=== PATIENT | male | born 1940 | race Caucasian/White ===

== ENCOUNTER 2020-01-15 07:33 | Emergency (ER) | payer MEDICARE, OTHER, SELFPAY ==
[2020-01-15 07:38] VITALS: BP 142/69; PULSE 53; RESP 20; TEMP 35.8; O2SAT 96
--- NOTE | 2020-01-15 07:43 | ED_ITS ---
HPI - Dizziness General Chief Complaint: Dizziness Stated Complaint: Dizzy Time Seen by Provider: 01/15/20 07:41 Source: patient Mode of arrival: EMS Limitations: no limitations History of Present Illness HPI Narrative: Patient is a 79-year-old male who presents with sudden onset of dizziness. He says he woke up around 6:00 a.m. this morning he was having a mild low back pain which is not uncommon for him he stood up his back pain was relieved he had some breakfast he sat back down in his chair and fell asleep when he woke up again he was severely nauseated and dizzy and felt like he might pass out. He was diaphoretic as well. He denies any chest pain weakness numbness or tingling. His back pain has since resolved he did not even need to take any medication for it. He has no abdominal pain. He overall is feeling better. He denies the room spinning. He states that he generally feels weak all over MD complaint: dizziness and lightheadedness Timing: sudden onset History of similar episodes: No History of trauma: No Exacerbating factors: nothing Associated symptoms: diaphoresis and weakness Review of Systems Review of Systems Narrative: GENERAL: Weakness Denies chills, fatigue, malaise, fever, sweats, travel HEENT: Denies sinus pain, ear pain, sore throat, difficulty swallowing, neck pain RESPIRATORY: Denies dyspnea, cough, wheezing, hemoptysis, sputum. CARDIOVASCULAR: Denies chest pain, palpitations, orthopnea, edema GASTROINTESTINAL: Denies nausea, vomiting, abdominal pain, diarrhea, constipation, melena. : Denies dysuria, frequency, incontinence, hematuria, urinary retention, flank pain. MUSCULOSKELETAL: Denies weakness, joint pain, or bony pain SKIN: No rash, no erythema, no pruritus NEUROLOGIC: Denies weakness, headache, numbness, change in speech, confusion PSYCHIATRIC: No concerning psychosocial issues. 12 point review of systems is negative except for those stated above and HPI Patient History Medical History Hypertension (Acute) Social History Smoking Status: Never smoker Exam Initial Vital Signs Initial Vital Signs: Vital Signs Temperature 96.5 F L 01/15/20 07:38 Pulse Rate 53 L 01/15/20 07:38 Respiratory Rate 20 01/15/20 07:38 Blood Pressure 142/69 H 01/15/20 07:38 Pulse Oximetry 96 01/15/20 07:38 GENERAL: The male appears well HEENT: Head atraumatic,EOMI, pupils reactive, face symmetric CARDIOVASCULAR: Regular rate and rhythm without murmurs, rubs or gallops. RESPIRATORY: Breath sounds equal bilaterally, no wheezes rales or rhonchi. ABDOMEN: Soft, nontender. Normoactive bowel sounds all 4 quadrants. No guarding or rebound. EXTREMITIES: Normal range of motion, no clubbing or edema. Neurovascularly intact NEUROLOGICAL: Alert and oriented x4.Normal gait and speech. Cranial nerves II through XII grossly intact. Good brpyyp-fk-cced, good zkzq-ga-lyay, strength equal bilaterally, no dysarthria or aphasia, sensation in tact to soft touch bilaterally, no visual changes, no facial droop SKIN: Warm, dry, no laceration, no petechiae, no rashes or lesions. Scores NIH Stroke Scale Level of Conciousness: Alert, keenly responsive Ask month/age: Answers both questions correctly. Open/close eyes, close hand: Performs both tasks correctly Best gaze horizontal: Normal Visual stokes: No visual loss Facial palsy: Normal symetrical movement Left arm drift: No drift for full 10 sec Right arm drift: No drift for full 10 sec Left leg drift: No drift for full 10 sec Right leg drift: No drift for full 10 sec Limb ataxia: Absent Sensory on face/arms/legs: Normal, no sensory loss Best language: No aphasia, normal Dysarthria: Normal Extinction or inattention: No abnormality Total NIH Stroke scale score: 0 Course Orders Ordered: Discontinued Medications Sodium Chloride (Normal Saline 0.9%) 1,000 mls @ 150 mls/hr IV CONT FABRICIO Last Admin: 01/15/20 07:48 Dose: 150 mls/hr Documented by: ZAHRA Vital Signs Vital signs: Vital Signs - 8 hr 01/15/20 07:38 01/15/20 08:41 Temperature 96.5 F L Pulse Rate 53 L 50 L Respiratory Rate 20 15 Blood Pressure 142/69 H Blood Pressure [Left Arm] 158/71 H Pulse Oximetry 96 96 MDM - Dizziness Lab Data Attestation: I reviewed the patient's lab results. Result diagrams: 01/15/20 07:46 01/15/20 07:46 Labs: Lab Results 01/15/20 01/15/20 Range/Units 07:46 07:46 WBC 7.0 (4.5-11.0) X10^3/uL RBC 4.20 L (4.5-5.9) X10^6/uL Hgb 13.6 (13.5-17.5) g/dL Hct 38.8 L (41-53) % MCV 92.2 (80-100) fL MCH 32.2 (26-34) PG MCHC 35.0 (30-36) % RDW 12.3 (11.6-14.8) % Plt Count 234 (150-400) X10^3/uL Neut % (Auto) 74.4 (50-75) % Lymph % (Auto) 14.9 L (25-40) % [place] % (Auto) 8.7 (3-14) % Eos % (Auto) 1.5 L (2-4) % Baso % (Auto) 0.5 (0-2) % Neut # (Auto) 5200 (9020-7267) /uL Lymph # (Auto) 1000 L (7596-5108) /uL [place] # (Auto) 600 (0-900) /uL Eos # (Auto) 100 (0-450) /uL Baso # (Auto) 0 (0-100) /uL Sodium 133 L (137-145) mmol/L Potassium 3.2 L (3.4-5.1) mmol/L Chloride 97 L (98-107) mmol/L Carbon Dioxide 29 (22-32) mmol/L BUN 13 (9-20) mg/dL Creatinine 0.77 (0.66-1.25) mg/dL Estimated GFR > 60.0 (>60) mL/min BUN/Creatinine Ratio 16.9 (6-22) Glucose 206 H (80-110) mg/dL Calcium 9.1 (8.4-10.2) mg/dL Total Bilirubin 0.6 (0.2-1.3) mg/dL AST 27 (17-59) IU/L ALT 20 (<50) IU/L Alkaline Phosphatase 66 (38-126) U/L Total Creatine Kinase 37 L (55-170) U/L CK-MB (CK-2) TNP CK-MB (CK-2) Rel Index TNP Troponin I < 0.012 (0.01-0.034) ng/mL Total Protein 6.6 (6.3-8.2) g/dL Albumin 4.0 (3.5-5.0) g/dL Globulin 2.6 (1.7-4.1) g/dL Albumin/Globulin Ratio 1.5 (1.0-2.8) ECG Data Attestation: I personally reviewed and interpreted this ECG as follows: Prior ECG tracings: not available for review Interpretation: Normal sinus rhythm rate 52 p.r. interval 228 QRS [address] elevation depression MDM Narrative Medical decision making narrative: Patient tolerating p.o. fluids he had ambulation trial he overall is feeling significantly better. He has no focal d eficits. Unclear cause of nausea and dizziness which has now resolved. No focal deficits dizziness was brief and seems to be feeling much better. At this time no clear indication for imaging. I did discuss with patient if symptoms worsen he needs to return for further test I discussed all findings with the patient , Education has been performed regarding treatment plan, diagnosis, warning signs and symptoms and all concerns have been addressed. Verbally agree with and understood all of the above. Discharge Plan Departure Patient Disposition: Home Clinical Impression: Benign paroxysmal positional vertigo Qualifiers: Laterality: unspecified laterality Qualified Code(s): H81.10 - Benign paroxysmal vertigo, unspecified ear Discharge Date/Time: 01/15/20 09:28 Instructions: DI for Dizziness-Nonvertigo Activity Restrictions/Additional Instructions: *You have been diagnosed with vertigo *What to do: It is unclear what caused her symptoms today. It if they should return or worsen please return to the ER immediately. *Continue to take medications as directed *Follow up with your primary care provider in 2-3 days *Return to ER if you should have recurrent episode of dizziness, passing out persistent nausea or vomiting weakness or numbness in extremities difficulty speaking frequent fall or any new, worsening or concerning symptoms
[2020-01-15] MEDS: SODIUM CHLORIDE 0.9% 1,000 ML 150 ML IV (07:48)
[2020-01-15 08:02] LABS: Add Manual Diff / Slide Review NO; Basophils Absolute Auto 0 /uL (0-100); Basophils Percent Auto 0.5 % (0-2); Eosinophils Absolute Auto 100 /uL (0-450); Eosinophils Percent Auto 1.5 % (2-4); Hematocrit 38.8 % (41-53); Hemoglobin 13.6 g/dL (13.5-17.5); Lymphocytes Absolute Auto 1000 /uL (1100-4500); Lymphocytes Percent Auto 14.9 % (25-40); Mean Corpuscular Hemoglobin 32.2 PG (26-34); Mean Corpuscular Volume 92.2 fL (80-100); Monocytes Absolute Auto 600 /uL (0-900); Monocytes Percent Auto 8.7 % (3-14); Neutrophils Absolute Auto 5200 /uL (1500-7000); Neutrophils Percent Auto 74.4 % (50-75); Platelet Count 234 X10^3/uL (150-400); Red Cell Distribution Width 12.3 % (11.6-14.8)
[2020-01-15 08:22] LABS: Alanine Aminotransferase 20 IU/L (<50); Albumin Globulin Ratio 1.5 (1.0-2.8); Alkaline Phosphatase 66 U/L (38-126); Aspartate Aminotransferase 27 IU/L (17-59); BUN Creatinine Ratio 16.9 (6-22); Bilirubin Total 0.6 mg/dL (0.2-1.3); Blood Urea Nitrogen 13 mg/dL (9-20); Calcium 9.1 mg/dL (8.4-10.2); Carbon Dioxide 29 mmol/L (22-32); Chloride 97 mmol/L (98-107); Creatine Kinase 37 U/L (55-170); Estimated Glomerular Filt Rate > 60.0 mL/min (>60); Globulin 2.6 g/dL (1.7-4.1); Glucose 206 mg/dL (80-110); HEMOLYSIS < 15 (0-50); Potassium 3.2 mmol/L (3.4-5.1); Sodium 133 mmol/L (137-145); Total Protein 6.6 g/dL (6.3-8.2)
[2020-01-15 08:33] LABS: Troponin I < 0.012 ng/mL (0.01-0.034)
[2020-01-15 08:41] VITALS: BP 158/71; PULSE 50; RESP 15; O2SAT 96
--- NOTE | 2020-01-29 11:49 | PC.NURSE ---
Late entry: Normal Saline started @ 0748 @ 150 ml / hour stopped at 0920 upon pt discharge. Approx 225 cc infused. No ill effect.
== END 2020-01-15 09:28 | disposition home or self-care (01) ==
PROVIDERS: Emergency Provider Emergency Medicine
DX: H81.10 Benign paroxysmal vertigo, unspecified ear (principal)
CPT/HCPCS: 36415; 80053; 82550; 84484; 85025; 93005; 96360; 96361; 99283; 99284

== ENCOUNTER → 2020-06-03 17:00 | Outpatient (CLI) | payer MEDICARE, OTHER, SELFPAY ==
[2020-06-03 17:32] LABS: Bacteria Urine None Seen
[2020-06-03 17:57] LABS: Alanine Aminotransferase 25 IU/L (<50); Albumin 4.1 g/dL (3.5-5.0); Albumin Globulin Ratio 1.4 (1.0-2.8); Alkaline Phosphatase 66 U/L (38-126); Aspartate Aminotransferase 31 IU/L (17-59); BUN Creatinine Ratio 23.1 (6-22); Bilirubin Total 0.5 mg/dL (0.2-1.3); Blood Urea Nitrogen 21 mg/dL (9-20); Calcium 8.9 mg/dL (8.4-10.2); Carbon Dioxide 31 mmol/L (22-32); Chloride 102 mmol/L (98-107); Estimated Glomerular Filt Rate > 60.0 mL/min (>60); Glucose 103 mg/dL (80-110); HEMOLYSIS < 15 (0-50); Potassium 4.3 mmol/L (3.4-5.1); Sodium 136 mmol/L (137-145); Total Protein 7.1 g/dL (6.3-8.2)
[2020-06-03 18:01] LABS: Add Manual Diff / Slide Review NO; Basophils Absolute Auto 100 /uL (0-100); Basophils Percent Auto 0.9 % (0-2); Eosinophils Absolute Auto 100 /uL (0-450); Eosinophils Percent Auto 1.5 % (2-4); Hematocrit 40.2 % (41-53); Hemoglobin 13.8 g/dL (13.5-17.5); Lymphocytes Absolute Auto 1400 /uL (1100-4500); Lymphocytes Percent Auto 23.9 % (25-40); Mean Corpuscular HGB Conc 34.2 % (30-36); Mean Corpuscular Hemoglobin 32.2 PG (26-34); Monocytes Absolute Auto 600 /uL (0-900); Monocytes Percent Auto 9.8 % (3-14); Neutrophils Absolute Auto 3800 /uL (1500-7000); Neutrophils Percent Auto 63.9 % (50-75); Platelet Count 238 X10^3/uL (150-400); Red Blood Cell Count 4.28 X10^6/uL (4.5-5.9); Red Cell Distribution Width 12.4 % (11.6-14.8); White Blood Cell Count 5.9 X10^3/uL (4.5-11.0)
[2020-06-03 18:14] LABS: Appearance Urine UA CLEAR; Bilirubin Urine UA NEGATIVE (NEGATIVE); Color Urine UA YELLOW; Glucose Urine UA NEGATIVE (Negative); Ketones Urine UA NEGATIVE (NEGATIVE); Leukocyte Esterase Urine UA NEGATIVE (NEGATIVE); Nitrite Urine UA NEGATIVE (Negative); Occult Blood Urine UA NEGATIVE (Negative); Protein Urine UA NEGATIVE (Negative); Urobilinogen Urine UA 0.2 E.U./dL (0.2); pH Urine UA 6.5 (4.5-8.0)
[2020-06-03 18:24] LABS: Hemoglobin A1C% w Est Avg Glu 5.6 % (4.0-6.0)
[2020-06-03 18:41] LABS: Creatinine Urine Random 55.2 mg/dL
[2020-06-03 18:45] LABS: Microalbumin Urine Random < 0.6 mg/dL (0-1.6)
[2020-06-03 18:50] LABS: Culture Indicated Urine Cult Not Indicated; RBC Urine 0-1/HPF (0-5/HPF); Squamous Epithelial Cell Urine None Seen (0-5/HPF); WBC Urine 0-1/HPF (0-5/HPF)
== END ==
PROVIDERS: PCP Family Medicine; Referring Provider Family Medicine; Visit Provider Family Medicine
DX: E11.9 Type 2 diabetes mellitus without complications (principal); I10 Essential (primary) hypertension
CPT/HCPCS: 36415; 80053; 81001; 82043; 82570; 83036; 85025

== ENCOUNTER → 2020-12-09 09:23 | Outpatient (CLI) | payer MEDICARE, OTHER, SELFPAY ==
[2020-12-09 10:25] LABS: Hemoglobin A1C% w Est Avg Glu 5.3 % (4.0-6.0)
[2020-12-09 10:53] LABS: Alanine Aminotransferase 20 IU/L (<50); Albumin 4.2 g/dL (3.5-5.0); Albumin Globulin Ratio 1.7 (1.0-2.8); Alkaline Phosphatase 70 U/L (38-126); Aspartate Aminotransferase 27 IU/L (17-59); BUN Creatinine Ratio 24.1 (6-22); Bilirubin Total 0.3 mg/dL (0.2-1.3); Blood Urea Nitrogen 21 mg/dL (9-20); Calcium 9.6 mg/dL (8.4-10.2); Carbon Dioxide 27 mmol/L (22-32); Chloride 103 mmol/L (98-107); Estimated Glomerular Filt Rate > 60.0 mL/min (>60); Globulin 2.5 g/dL (1.7-4.1); Glucose 100 mg/dL (80-110); HEMOLYSIS < 15 (0-50); Potassium 4.1 mmol/L (3.4-5.1); Sodium 137 mmol/L (137-145); Total Protein 6.7 g/dL (6.3-8.2)
[2020-12-09 11:46] LABS: Microalbumi Creatinin Ratio Ur 5.1 ug/mg CR (<30); Microalbumin Urine Random 0.6 mg/dL (0-1.6)
== END ==
PROVIDERS: PCP Family Medicine; Referring Provider Family Medicine; Visit Provider Family Medicine
DX: E11.9 Type 2 diabetes mellitus without complications (principal); I10 Essential (primary) hypertension
CPT/HCPCS: 36415; 80053; 82043; 82570; 83036

== ENCOUNTER → 2021-03-12 11:05 | Outpatient (CLI) | payer MEDICARE, SELFPAY ==
[2021-03-12 12:50] LABS: COVID19 -Nasal RAPID Negative (Negative)
== END ==
PROVIDERS: PCP Family Medicine; Referring Provider Specialist; Visit Provider Specialist
DX: Z20.822 Contact with and (suspected) exposure to COVID-19 (principal)
CPT/HCPCS: 87635; C9803

== ENCOUNTER 2021-03-13 07:59 | Day surgery (SDC) | payer MEDICARE, OTHER, SELFPAY ==
--- NOTE | 2021-03-13 | PATH_ITS ---
[facility] Accession Number: [id number] . 01 Material submitted: . body - POLYPS @70CM X2 . 02 Diagnosis: Colon, Polyps at 70 cm x2, Biopsies: Tubular adenomas. MRV 03/17/2021 1109 Local . 02 Electronically signed: . Eileen Mcginnis MD, Pathologist NPI- [id number] . 01 Gross description: . POLYPS @70CM X2: Received in formalin are multiple fragment(s) of [place], soft tissue measuring 2.0 x 0.5 x 0.3 cm in aggregate submitted entirely in 1 cassette(s) /MARIANELA 03/14/2021 0254 Local . 02 Pathologist provided ICD-10: D12.6 . 02 CPT . 436742 Performed at: [address] [facility] [address] [id number] MD Ian Aden MD Phone: [phone] Performed at: 02 [facility] [address] [place], [place] [id number] MD Eileen Mcginnis MD Phone: [phone]
[2021-03-13 08:41] VITALS: BP 139/73; PULSE 68; RESP 16; TEMP 36.3; O2SAT 95; BMI 27.6
[2021-03-13] MEDS: LACTATED RINGERS 1,000 ML 84 ML IV (08:53)
--- NOTE | 2021-03-13 10:24 | PM.HP.1 ---
History of Present Illness History of Present Illness Chief complaint: SCREENING COLONSCOPY Narrative: Patient is a gentleman here for screening colonoscopy. Last exam was 10 years ago. He has no personal history of polyps and a family history of colon cancer. Patient History Medical History (Updated 03/13/21 @ 10:25 by Dino Carrion MD) BPH (benign prostatic hyperplasia) Erectile dysfunction Hypernatremia Hypertension Preventative health care Family & Social History Social History: household members spouse Tobacco & Substance use: Smoking Status Former smoker alcohol intake current alcohol intake frequency holiday/special occasion Substance Use Type does not use Meds Home Medications and Allergies Home Medications Medication Instructions Recorded Confirmed Type sildenafil 100 mg tablet 100 mg PO ONCE PRN #20 tab 08/01/20 03/13/21 Rx tamsulosin 0.4 mg capsule 0.4 mg PO BEDTIME #90 cap 08/01/20 03/13/21 Rx hydrochlorothiazide 50 mg tablet 50 mg PO DAILY #90 tab 12/26/20 03/13/21 Rx losartan 100 mg tablet 100 mg PO DAILY #90 tab 12/26/20 03/13/21 Rx Allergies Allergy/AdvReac Type Severity Reaction Status Date / Time No Known Drug Allergies Allergy Verified 03/13/21 08:35 Review of Systems Review of Systems Narrative: Uses a hearing aid in wears glasses. Otherwise negative Exam Vital Signs (past 8 hours): - 03/13/21 08:41 Temperature 97.4 F L Pulse Rate 68 Respiratory Rate 16 Blood Pressure 139/73 Pulse Oximetry 95 Oxygen Delivery Method Room Air Narrative Exam Narrative: Pleasant cooperative patient no apparent distress. Lungs are clear to auscultation. No rales or rhonchi. Heart regular rate and rhythm no murmur gallop. Abdomen is soft nontender without mass. No obvious hernias. Patient is alert and oriented x3. Assessment & Plan Assessment & Plan narrative: The patient for a screening colonoscopy. I have discussed the procedure with them. Risks of bleeding, perforation which would necessitate major operation, failure to find remove all lesions, the potential tattoo were all discussed. All questions were answered. They wished to proceed.
--- NOTE | 2021-03-13 10:28 | PM.PREOP ---
Pre-operative Note COVID-19 COVID-19 status: Negative Result date/Date tested (Pos, Neg/Pending): 03/12/21 Interval Note History & Physical reviewed/Exam performed by Physician: Yes Changes to H&P: No ASA Class (for procedural sedation): II
--- NOTE | 2021-03-13 10:58 | PM.OP.ENDO ---
Operative Date/Time/Diagnoses Date of procedure: 03/13/21 Time of procedure: 10:58 Pre-op diagnosis: Screening exam. Last exam 10 years ago. Post-op diagnosis: same (To small Polyps removed at 70 cm from the anal verge. Extensive diverticulosis most concentrated in the sigmoid colon.) Procedure & Clinicians Study performed: Colonoscopy with cold biopsy Same procedure as scheduled: Yes Indications: Screening for colon cancer Surgeon: Dino Carrion Procedure Notes SCOAP/Timeout: Performed Procedure in detail: The patient was placed in the left lateral decubitus position and underwent IV sedation directed by the surgeon consisting of fentanyl and Versed. Digital exam was remarkable for a decreased sphincter tone and a mildly enlarged prostate.. The scope was inserted and advanced through the rectum into the sigmoid, descending, transverse, and ascending colon. There was extensive diverticulosis noted in the sigmoid and descending colon. Patient had a small polyp removed during this insertion portion of the colonoscopy. This was done with cold biopsy forceps.. The cecum was reached identified by the ileocecal valve and the appendiceal opening. The scope was gradually brought out. One additional Polyp was found at 70 cm from the anal verge. It turned out this was immediately adjacent to the polyp removed on the way in. They were placed in the same container.. The scope ultimately was retroflexed in the rectum. The appearance was remarkable for internal hemorrhoids without ulceration.. The scope was removed and the patient tolerated the procedure well. The prep was very good Scope withdrawal time: 8 minutes(10 total) Sedation minutes: 27 Findings: diverticulosis and polyp Specimen(s): other (Polyps at 70 cm from the anal verge) Complications: none Post-procedure Recommendations: Colonscopy in 5 years (If you are in good health) Follow up: as needed Disposition: PACU
[2021-03-13] MEDS: fentaNYL 250 MCG/5 ML INJ IV (11:00)
[2021-03-13] MEDS: MIDAZOLAM 5 MG/5 ML VIAL IV (11:00)
[2021-03-13 11:01] VITALS: BP 115/71; PULSE 75; RESP 12; TEMP 36.3; O2SAT 97
[2021-03-13 11:06] VITALS: BP 117/85; PULSE 70; RESP 16; O2SAT 96
[2021-03-13 11:11] VITALS: BP 142/79; PULSE 64; RESP 16; O2SAT 95
[2021-03-13 11:16] VITALS: BP 136/78; PULSE 65; RESP 14; TEMP 36.4; O2SAT 96
[2021-03-13 11:19] VITALS: BP 143/80; PULSE 66; RESP 14; TEMP 36.4; O2SAT 96
== END 2021-03-13 11:30 | disposition home or self-care (01) ==
PROVIDERS: PCP Family Medicine; Referring Provider Specialist; Visit Provider Specialist
PROC: 0DJD8ZZ Inspection of Lower Intestinal Tract, Via Natural or Artificial Opening Endoscopic (ICD-10-PCS; CPT 45378; principal; 2021-03-13 09:15)
DX: Z12.11 Encounter for screening for malignant neoplasm of colon (principal); K57.30 Diverticulosis of large intestine without perforation or abscess without bleeding; I10 Essential (primary) hypertension; D12.6 Benign neoplasm of colon, unspecified
CPT/HCPCS: 45380; 99152; 99153; J2250; J3010

== ENCOUNTER 2021-08-13 17:09 | Emergency (ER) | payer MEDICARE, OTHER, SELFPAY ==
[2021-08-13 17:26] VITALS: BP 151/83; PULSE 78; RESP 14; TEMP 36.3; O2SAT 99; BMI 28.1
--- NOTE | 2021-08-13 18:16 | PC.NURSE ---
provided form per pt request of monoclonal antibody treatment.
--- NOTE | 2021-08-14 18:34 | ED.URI ---
HPI - URI/Sore Throat General Chief Complaint: Upper Respiratory Symptoms Stated Complaint: COVID+, Wants Eval Time Seen by Provider: 08/13/21 18:17 Source: patient Mode of arrival: Ambulatory History of Present Illness HPI Narrative: 81-year-old male former smoker with history of hypertension presents with his in the chief complaint of mild upper respiratory symptoms including some runny nose and a mild dry hacking cough. He has had subjective fever and mild body aches. He denies any significant trouble breathing. He has had no nausea or vomiting. He has not been vaccinated against COVID. He took a home test which had been supplied by our hospital which was positive earlier today. He is here requesting access to monoclonal antibodies Related Data Home Medications Medication Instructions Recorded Confirmed aspirin 81 mg tablet,delayed 81 mg PO DAILY 08/13/21 08/13/21 release Previous Rx's Medication Instructions Recorded tamsulosin 0.4 mg capsule 0.4 mg PO BEDTIME #90 cap 08/01/20 hydrochlorothiazide 50 mg tablet 50 mg PO DAILY #90 tab 12/26/20 losartan 100 mg tablet 100 mg PO DAILY #90 tab 12/26/20 sildenafil 100 mg tablet 100 mg PO ONCE PRN #20 tab 05/08/21 Allergies Allergy/AdvReac Type Severity Reaction Status Date / Time No Known Drug Allergies Allergy Verified 08/13/21 17:30 Review of Systems Review of Systems Narrative: GENERAL: See HPI HEENT: See HPI RESPIRATORY: See HPI CARDIOVASCULAR: Denies chest pain, palpitations, orthopnea, edema, GASTROINTESTINAL: Denies nausea, vomiting, abdominal pain, diarrhea, constipation, melena. : Denies dysuria, frequency, incontinence, hematuria, urinary retention. MUSCULOSKELETAL: denies weakness, joint pain, or bony pain SKIN: Denies rash, skin lesions, or other NEUROLOGIC: Denies weakness, headache, numbness, change in speech, confusion, seizures, incoordination. PSYCHIATRIC: No concerning psychosocial issues. 12 point review of systems is negative except for those stated above Patient History Medical History BPH (benign prostatic hyperplasia) Erectile dysfunction Hypernatremia Hypertension Preventative health care Social History household members: spouse Smoking Status: Former smoker Tobacco: How many years used: 12 second hand exposure: No alcohol intake: current substance use type: does not use Smoking Status: Former smoker alcohol intake frequency: holidays/special occasions only Substance Use Type: does not use Exam Narrative Exam Narrative: GENERAL: [81] year old patient appears stated age. Well-developed patient, in mild distress. HEAD: Atraumatic. Normocephalic. EYES: Pupils equal round and reactive. Extraocular motions intact. No scleral icterus. No injection or drainage. ENT: Nose without bleeding, purulent drainage. Throat without erythema, tonsillar hypertrophy or exudate. Airway patent. NECK: Trachea midline. Non tender CARDIOVASCULAR: Regular rate and rhythm without murmurs, gallops, or rubs. RESPIRATORY: Clear to auscultation. Breath sounds equal bilaterally. No wheezes, rales, or rhonchi. GASTROINTESTINAL: Abdomen soft, non-tender, nondistended. EXTREMITIES: No edema or joint tenderness. BACK: Nontender without deformity or crepitance. No flank tenderness. NEURO: AOx3. SKIN: No rash or erythema of visible areas Initial Vital Signs Initial Vital Signs: Vital Signs Temperature 97.3 F L 08/13/21 17:26 Pulse Rate 78 08/13/21 17:26 Respiratory Rate 14 08/13/21 17:26 Blood Pressure 151/83 H 08/13/21 17:26 Pulse Oximetry 99 08/13/21 17:26 MDM - URI/Sore Throat MDM Narrative Medical decision making narrative: Patient with very minimal symptoms and no signs of respiratory distress with reassuring history and physical exam and known positive COVID. He does meet criteria for monoclonal antibodies and an order was sent to [facility] on his behalf. It was explained to him that this may be and short supply and difficult to find, he also understands that this is not an FDA approved treatment but that it may be helpful. There is no indication for further workup given how mild his symptoms are, return precautions given and questions have been answered to his apparent satisfaction Discharge Plan Departure Patient Disposition: Home Clinical Impression: COVID-19 Instructions: DI for COVID-19 (Suspected or Confirmed ) Activity Restrictions/Additional Instructions: *You have been diagnosed with [ COVID-19] *What to do: * per recommendations from the CDC and the [facility] Department of Health * stay home except to get medical care. Restrict activities outside your home, except for getting medical care. Do not go to work, school, or public areas. Avoid using public transportation, ride sharing, or taxis. * separate yourself from other people in your home. * call ahead before visiting your doctor * Wear a facemask * Cover your coughs and sneezes * Clean your hands often * Avoid sharing household items * Clean all high-touch services every day * Monitor your symptoms and seek prompt medical attention if your illness is worsening, particularly with difficulty in breathing. You may discontinue your isolation when: 1. You have been fever-free for at least 24 hours without the use of fever reducing medication, AND 2. Your symptoms are getting better 3. At least 5 days have passed since symptoms first appeared 4. If you have fever, continue to stay home until fever resolves Individuals with laboratory confirmed COVID-19 who have not had any symptoms may discontinue home isolation when at least 5 days have passed since the date of their first COVID-19 diagnostic test and have had no subsequent illness Your family and friends that are fully immunized with a booster need to wear a mask around others for 10 days and should get tested on day 5 if possible. At any point if they become symptomatic they should get a test and stay home. Prescriptions: No Action hydrochlorothiazide 50 mg tablet 50 mg PO DAILY Qty: 90 1RF losartan 100 mg tablet 100 mg PO DAILY Qty: 90 1RF sildenafil 100 mg tablet 100 mg PO ONCE PRN (Reason: sexual activity) Qty: 20 3RF tamsulosin 0.4 mg capsule 0.4 mg PO BEDTIME Qty: 90 3RF aspirin [Aspir-81] 81 mg Tablet,Delayed Release (Dr/Ec) 81 mg PO DAILY 0RF Referrals: eLandro Thornton, [Primary Care Provider] -
== END 2021-08-13 18:46 | disposition home or self-care (01) ==
PROVIDERS: Emergency Provider Emergency Medicine; PCP Family Medicine
DX: U07.1 COVID-19 (principal); Z87.891 Personal history of nicotine dependence
CPT/HCPCS: 99281

== ENCOUNTER 2021-08-15 23:03 | Emergency (ER) | payer MEDICARE, OTHER, SELFPAY ==
[2021-08-15 23:11] VITALS: BP 135/67; PULSE 68; RESP 16; TEMP 35.8; O2SAT 94; BMI 28.1
--- NOTE | 2021-08-15 23:12 | ED_ITS ---
HPI - Nausea/Vomiting/Diarrhea General Chief complaint: Nausea/Vomiting/Diarrhea Stated complaint: Nausea Time Seen by Provider: 08/15/21 23:10 History of Present Illness HPI Narrative: 81-year-old male former smoker with history of hypertension and recent diagnosis of COVID presents by EMS for evaluation of an episode of profound nausea prior to his arrival. He had been in his normal state of health throughout the course of the day and denies any chest pain or shortness of breath. He has had no change in medications or diet. He was sleeping in his recliner when his noticed that he was making a choking sound and she went to arouse him which was difficult at 1st, she even had to smack his face of a and when he awoke she found in to be significantly nauseated and diaphoretic. Patient was still diaphoretic on EMS arrival, blood glucose was normal, EKG was nonischemic, he was given IV and some Zofran arrives feeling at baseline and without complaint. He was seen on 08/13 for COVID+ test that had been obtained at our [facility] pharmacy 4 days prior. Related Data Home Medications Medication Instructions Recorded Confirmed aspirin 81 mg tablet,delayed 81 mg PO DAILY 08/13/21 08/13/21 release Previous Rx's Medication Instructions Recorded tamsulosin 0.4 mg capsule 0.4 mg PO BEDTIME #90 cap 08/01/20 hydrochlorothiazide 50 mg tablet 50 mg PO DAILY #90 tab 12/26/20 losartan 100 mg tablet 100 mg PO DAILY #90 tab 12/26/20 sildenafil 100 mg tablet 100 mg PO ONCE PRN #20 tab 05/08/21 Allergies Allergy/AdvReac Type Severity Reaction Status Date / Time No Known Drug Allergies Allergy Verified 08/13/21 17:30 Review of Systems Review of Systems Narrative: GENERAL: Denies chills, fatigue, malaise, fever, sweats. HEENT: Denies sinus pain, ear pain, sore throat, difficulty swallowing, dizziness. RESPIRATORY: Denies dyspnea, cough, wheezing, hemoptysis, sputum. CARDIOVASCULAR: Denies chest pain, palpitations, orthopnea, edema, GASTROINTESTINAL: See HP : Denies dysuria, frequency, incontinence, hematuria, urinary retention. MUSCULOSKELETAL: denies weakness, joint pain, or bony pain SKIN: Denies rash, skin lesions, or other NEUROLOGIC: Denies weakness, headache, numbness, change in speech, confusion, seizures, incoordination. PSYCHIATRIC: No concerning psychosocial issues. 12 point review of systems is negative except for those stated above Patient History Medical History BPH (benign prostatic hyperplasia) Erectile dysfunction Hypernatremia Hypertension Preventative health care Social History household members: spouse Smoking Status: Former smoker Tobacco: How many years used: 12 second hand exposure: No alcohol intake: current substance use type: does not use Smoking Status: Former smoker alcohol intake frequency: holidays/special occasions only Substance Use Type: does not use Exam Narrative Exam Narrative: GENERAL: [81 year old patient appears stated age. Well-developed patient, in mild distress. HEAD: Atraumatic. Normocephalic. EYES: Pupils equal round and reactive. Extraocular motions intact. No scleral icterus. No injection or drainage. ENT: Nose without bleeding, purulent drainage. Throat without erythema, tonsillar hypertrophy or exudate. Airway patent. NECK: Trachea midline. Non tender CARDIOVASCULAR: Regular rate and rhythm without murmurs, gallops, or rubs. RESPIRATORY: Clear to auscultation. Breath sounds equal bilaterally. No wheezes, rales, or rhonchi. GASTROINTESTINAL: Abdomen soft, non-tender, nondistended. EXTREMITIES: No edema or joint tenderness. BACK: Nontender without deformity or crepitance. No flank tenderness. NEURO: AOx3. SKIN: No rash or erythema of visible areas Initial Vital Signs Initial Vital Signs: Vital Signs Temperature 96.5 F L 08/15/21 23:11 Pulse Rate 68 08/15/21 23:11 Respiratory Rate 16 08/15/21 23:11 Blood Pressure 135/67 08/15/21 23:11 Pulse Oximetry 94 08/15/21 23:11 Course Course Course Narrative: Patient has been resting comfortably for the duration of his visit. He has tolerating oral challenge and asymptomatic. Labs are very reassuring. Orders Ordered: ED Orders 08/15/21 23:13 XR chest 1V Stat EKG-12 Lead Stat 08/15/21 23:22 C-Reactive Protein Quant Stat Complete Blood Count AUTO DIFF Stat Comprehensive Metabolic Panel Stat D Dimer Stat Ferritin Stat Lactate Dehydrogenase Stat NT-proBNP (BNP-Adult 18+) Stat Procalcitonin Stat Troponin & CK Cardiac Panel Stat 08/15/21 23:45 COVID19 -Nasal swab/Pre-Proc Stat 08/16/21 01:46 Trop I [Troponin I] Stat Discontinued Medications Sodium Chloride (Normal Saline 0.9%) 1,000 mls @ 125 mls/hr IV CONT FABRICIO Last Infusion: 08/16/21 00:03 Dose: 0 mls/hr Documented by: Admin: 08/15/21 23:37 Dose: 125 mls/hr Documented by: PARTH Ondansetron HCl (Ondansetron 4 Mg Odt Prepack) 1 bottle MISC SEEINSTR ONE Stop: 08/16/21 02:22 Last Admin: 08/16/21 02:36 Dose: 1 bottle Documented by: GAURAV Vital Signs Vital signs: Vital Signs - 8 hr 08/15/21 23:11 08/15/21 23:29 08/15/21 23:30 Temperature 96.5 F L Pulse Rate 68 66 66 Respiratory Rate 16 Blood Pressure 135/67 Pulse Oximetry 94 92 92 08/15/21 23:32 08/16/21 00:00 08/16/21 00:29 Temperature 96.0 F L Pulse Rate 67 68 70 Respiratory Rate 18 Blood Pressure 126/67 128/62 Pulse Oximetry 91 92 93 08/16/21 00:30 08/16/21 01:00 08/16/21 01:30 Temperature Pulse Rate 68 74 70 Respiratory Rate Blood Pressure 143/67 H 145/70 H 130/73 Pulse Oximetry 93 92 94 08/16/21 02:00 08/16/21 02:30 Temperature Pulse Rate 71 74 Respiratory Rate Blood Pressure 132/73 149/79 H Pulse Oximetry 92 91 MDM - Nausea/Vomiting/Diarrhea Lab Data Result diagrams: 08/15/21 23:22 08/15/21 23:22 Labs: Lab Results 08/15/21 08/15/21 08/15/21 Range/Units 23:22 23:22 23:22 WBC 6.1 (4.5-11.0) X10^3/uL RBC 4.26 L (4.5-5.9) X10^6/uL Hgb 13.7 (13.5-17.5) g/dL Hct 38.6 L (41-53) % MCV 90.5 (80-100) fL MCH 32.2 (26-34) PG MCHC 35.6 (30-36) % RDW 12.4 (11.6-14.8) % Plt Count 177 (150-400) X10^3/uL Neut % (Auto) 82.2 H (50-75) % Lymph % (Auto) 8.8 L (25-40) % [place] % (Auto) 8.2 (3-14) % Eos % (Auto) 0.5 L (2-4) % Baso % (Auto) 0.3 (0-2) % Neut # (Auto) 5000 (2961-0833) /uL Lymph # (Auto) 500 L (4561-2293) /uL [place] # (Auto) 500 (0-900) /uL Eos # (Auto) 0 (0-450) /uL Baso # (Auto) 0 (0-100) /uL D-Dimer < 200 (<230) ng/mL Sodium (137-145) mmol/L Potassium (3.4-5.1) mmol/L Chloride (98-107) mmol/L Carbon Dioxide (22-32) mmol/L BUN (9-20) mg/dL Creatinine (0.66-1.25) mg/dL Estimated GFR (>60) mL/min BUN/Creatinine Ratio (6-22) Glucose (80-110) mg/dL Calcium (8.4-10.2) mg/dL Ferritin (18-464) ng/mL Total Bilirubin (0.2-1.3) mg/dL AST (17-59) IU/L ALT (<50) IU/L Alkaline Phosphatase (38-126) U/L Lactate Dehydrogenase (313-618) U/L Total Creatine Kinase (55-170) U/L CK-MB (CK-2) CK-MB (CK-2) Rel Index Troponin I (0.01-0.034) ng/mL C-Reactive Protein (<1.0) mg/dL NT-Pro-B Natriuret Pep (<450) pg/mL Total Protein (6.3-8.2) g/dL Albumin (3.5-5.0) g/dL Globulin (1.7-4.1) g/dL Albumin/Globulin Ratio (1.0-2.8) Procalcitonin 0.10 (<0.5) ng/mL SARS-CoV-2 (PCR) (Negative) 08/15/21 08/15/21 08/16/21 Range/Units 23:22 23:45 01:46 WBC (4.5-11.0) X10^3/uL RBC (4.5-5.9) X10^6/uL Hgb (13.5-17.5) g/dL Hct (41-53) % MCV (80-100) fL MCH (26-34) PG MCHC (30-36) % RDW (11.6-14.8) % Plt Count (150-400) X10^3/uL Neut % (Auto) (50-75) % Lymph % (Auto) (25-40) % [place] % (Auto) (3-14) % Eos % (Auto) (2-4) % Baso % (Auto) (0-2) % Neut # (Auto) (2675-3460) /uL Lymph # (Auto) (6944-4348) /uL [place] # (Auto) (0-900) /uL Eos # (Auto) (0-450) /uL Baso # (Auto) (0-100) /uL D-Dimer (<230) ng/mL Sodium 132 L (137-145) mmol/L Potassium 3.7 (3.4-5.1) mmol/L Chloride 98 (98-107) mmol/L Carbon Dioxide 28 (22-32) mmol/L BUN 20 (9-20) mg/dL Creatinine 0.90 (0.66-1.25) mg/dL Estimated GFR > 60.0 (>60) mL/min BUN/Creatinine Ratio 22.2 H (6-22) Glucose 136 H (80-110) mg/dL Calcium 8.6 (8.4-10.2) mg/dL Ferritin 182 (18-464) ng/mL Total Bilirubin 0.6 (0.2-1.3) mg/dL AST 28 (17-59) IU/L ALT 19 (<50) IU/L Alkaline Phosphatase 75 (38-126) U/L Lactate Dehydrogenase 316 (313-618) U/L Total Creatine Kinase 24 L (55-170) U/L CK-MB (CK-2) TNP CK-MB (CK-2) Rel Index TNP Troponin I < 0.012 < 0.012 (0.01-0.034) ng/mL C-Reactive Protein 2.4 H (<1.0) mg/dL NT-Pro-B Natriuret Pep 88 (<450) pg/mL Total Protein 6.5 (6.3-8.2) g/dL Albumin 3.9 (3.5-5.0) g/dL Globulin 2.6 (1.7-4.1) g/dL Albumin/Globulin Ratio 1.5 (1.0-2.8) Procalcitonin (<0.5) ng/mL SARS-CoV-2 (PCR) Positive H (Negative) MDM Narrative Medical decision making narrative: Multiple etiologies for patient's symptoms considered including: [Choking episode versus COVID versus myocardial infarction versus other Patient's symptoms improved over duration of stay with above-stated therapies. Findings and discharge diagnosis discussed with patient/family followed by verbalization of understanding Return precautions discussed with patient/family whom verbalize understanding. Discharge Plan Departure Patient Disposition: Home Clinical Impression: COVID-19 Activity Restrictions/Additional Instructions: *You have been diagnosed with [ COVID-19] *What to do: * per recommendations from the CDC and the [facility] Department of Health * stay home except to get medical care. Restrict activities outside your home, except for getting medical care. Do not go to work, school, or public areas. Avoid using public transportation, ride sharing, or taxis. * separate yourself from other people in your home. * call ahead before visiting your doctor * Wear a facemask * Cover your coughs and sneezes * Clean your hands often * Avoid sharing household items * Clean all high-touch services every day * Monitor your symptoms and seek prompt medical attention if your illness is worsening, particularly with difficulty in breathing. You may discontinue your isolation when: 1. You have been fever-free for at least 24 hours without the use of fever reducing medication, AND 2. Your symptoms are getting better, AND 3. At least 5 days have passed since symptoms first appeared 4. If you have fever, continue to stay home until fever resolves Individuals with laboratory confirmed COVID-19 who have not had any symptoms may discontinue home isolation when at least 5 days have passed since the date of their first COVID-19 diagnostic test and have had no subsequent illness You should notifiy any friends and family that have been in close contact *If up to date on COVID Vaccines, then they do not need to quarantine unless symptoms develop. Get tested on day 5 (or sooner if symptoms develop). Take precautions and watch for symptoms until day 10 *If NOT up to date on COVID Vaccines, then CDC recommends quarantine for at least 5 full days. Wear a well fitted mask at home if you must be around others. If they develop symptoms they should get tested. If they remain asymptomatic they should get tested on day 5. They should take precautions and monitor for symptoms until day 10. Prescriptions: No Action hydrochlorothiazide 50 mg tablet 50 mg PO DAILY Qty: 90 1RF losartan 100 mg tablet 100 mg PO DAILY Qty: 90 1RF sildenafil 100 mg tablet 100 mg PO ONCE PRN (Reason: sexual activity) Qty: 20 3RF tamsulosin 0.4 mg capsule 0.4 mg PO BEDTIME Qty: 90 3RF aspirin [Aspir-81] 81 mg Tablet,Delayed Release (Dr/Ec) 81 mg PO DAILY 0RF Referrals: Leandro Thornton, DO [Primary Care Provider] -
--- NOTE | 2021-08-15 23:13 | DI.RAD.S_ITS ---
PROCEDURE: XR CHEST 1V INDICATIONS: flu-like symptoms TECHNIQUE: One view of the chest was acquired. COMPARISON: None. FINDINGS: Surgical changes and devices: None. Lungs and pleura: Lungs are mildly abnormal, with a relatively subtle pattern of alveolar infiltration best seen at the lateral left lung base and present to a lesser degree at the lateral right lower lobe.. No pleural effusions or pneumothorax. Mediastinum: Mediastinal contours appear normal. Heart size is normal. Bones and chest wall: No suspicious bony lesions. Overlying soft tissues appear unremarkable. IMPRESSION: Mild pneumonitis pattern bilaterally, likely viral in origin. Dictated by: Carlos Zamudio M.D. on 08/15/2021 at 23:48 Approved by: Carlos Zamudio M.D. on 08/15/2021 at 23:49
--- NOTE | 2021-08-15 23:27 | PC.NURSE ---
per EMS pt was asleep in the recliner when his her some gasping noises she attempted to wake the pt without success so she began slapping him, he woke and then became nauseated, EMS found pt diaphoretic and nauseated pt was given Zofran in route and at this time is denying any s/s
[2021-08-15 23:29] VITALS: PULSE 66; O2SAT 92
[2021-08-15 23:30] VITALS: PULSE 66; O2SAT 92
[2021-08-15 23:32] VITALS: BP 126/67; PULSE 66; PULSE 67; RESP 18; TEMP 35.6; O2SAT 91
[2021-08-15] MEDS: SODIUM CHLORIDE 0.9% 1,000 ML 125 ML IV (23:37)
[2021-08-15 23:42] LABS: Add Manual Diff / Slide Review NO; Basophils Absolute Auto 0 /uL (0-100); Basophils Percent Auto 0.3 % (0-2); Eosinophils Absolute Auto 0 /uL (0-450); Eosinophils Percent Auto 0.5 % (2-4); Hematocrit 38.6 % (41-53); Hemoglobin 13.7 g/dL (13.5-17.5); Lymphocytes Absolute Auto 500 /uL (1100-4500); Lymphocytes Percent Auto 8.8 % (25-40); Mean Corpuscular HGB Conc 35.6 % (30-36); Mean Corpuscular Hemoglobin 32.2 PG (26-34); Mean Corpuscular Volume 90.5 fL (80-100); Monocytes Absolute Auto 500 /uL (0-900); Monocytes Percent Auto 8.2 % (3-14); Neutrophils Absolute Auto 5000 /uL (1500-7000); Neutrophils Percent Auto 82.2 % (50-75); Platelet Count 177 X10^3/uL (150-400); Red Blood Cell Count 4.26 X10^6/uL (4.5-5.9); Red Cell Distribution Width 12.4 % (11.6-14.8); White Blood Cell Count 6.1 X10^3/uL (4.5-11.0)
[2021-08-15 23:48] LABS: D Dimer < 200 ng/mL (<230)
[2021-08-15 23:52] LABS: Alanine Aminotransferase 19 IU/L (<50); Albumin 3.9 g/dL (3.5-5.0); Albumin Globulin Ratio 1.5 (1.0-2.8); Alkaline Phosphatase 75 U/L (38-126); Aspartate Aminotransferase 28 IU/L (17-59); BUN Creatinine Ratio 22.2 (6-22); Bilirubin Total 0.6 mg/dL (0.2-1.3); Blood Urea Nitrogen 20 mg/dL (9-20); C-Reactive Protein Quant 2.4 mg/dL (<1.0); Calcium 8.6 mg/dL (8.4-10.2); Carbon Dioxide 28 mmol/L (22-32); Chloride 98 mmol/L (98-107); Creatine Kinase 24 U/L (55-170); Estimated Glomerular Filt Rate > 60.0 mL/min (>60); Globulin 2.6 g/dL (1.7-4.1); Glucose 136 mg/dL (80-110); HEMOLYSIS < 15 (0-50); Lactate Dehydrogenase 316 U/L (313-618); Potassium 3.7 mmol/L (3.4-5.1); Sodium 132 mmol/L (137-145); Total Protein 6.5 g/dL (6.3-8.2)
[2021-08-15 23:55] LABS: COVID19 -Nasal RAPID POSITIVE (Negative)
[2021-08-16] VITALS (7 sets, daily range): BP systolic 128–149; BP diastolic 62–79; PULSE 68–74; O2SAT 91–94
[2021-08-16 00:02] LABS: NT-proBNP (BNP-Adult 18+) 88 pg/mL (<450); Troponin I < 0.012 ng/mL (0.01-0.034)
[2021-08-16 00:25] LABS: Ferritin 182 ng/mL (18-464)
--- NOTE | 2021-08-16 00:44 | PC.NURSE ---
pt tolerated po challenge, resting quietly on stretcher at this time snoring at intervals
[2021-08-16 02:19] LABS: Troponin I < 0.012 ng/mL (0.01-0.034)
--- NOTE | 2021-08-16 02:21 | PC.NURSE ---
resting quietly on stretcher waiting disposition
[2021-08-16] MEDS: ONDANSETRON 4 MG ODT PREPACK 1 BOTTLE MISC (02:36)
== END 2021-08-16 02:45 | disposition home or self-care (01) ==
PROVIDERS: Emergency Provider Emergency Medicine; PCP Family Medicine
DX: U07.1 COVID-19 (principal); R61 Generalized hyperhidrosis; I10 Essential (primary) hypertension; Z87.891 Personal history of nicotine dependence
CPT/HCPCS: 36415; 71045; 80053; 82550; 82728; 83615; 83880; 84145; 84484; 85025; 85379; 86140; 87635; 93005; 93010; 99284; C9803

== ENCOUNTER → 2023-03-18 11:51 | Outpatient (CLI) | payer MEDICARE, OTHER, SELFPAY ==
[2023-03-18 14:12] LABS: Prostate Specific Antigen 3.24 ng/mL (0.10-4.00)
== END ==
PROVIDERS: PCP Internal Medicine; Referring Provider Specialist; Visit Provider Specialist
DX: N40.1 Benign prostatic hyperplasia with lower urinary tract symptoms (principal); N13.8 Other obstructive and reflux uropathy
CPT/HCPCS: 36415; 84153

== ENCOUNTER → 2023-12-22 10:02 | Outpatient (CLI) | payer MEDICARE, OTHER, SELFPAY | PROVIDERS: Referring Provider Specialist; Visit Provider Specialist | DX: R97.20 Elevated prostate specific antigen [PSA] (principal) | CPT/HCPCS: 36415; 84153; 84154 ==

== ENCOUNTER → 2024-06-19 14:34 | Outpatient (CLI) | payer MEDICARE, OTHER, SELFPAY ==
[2024-06-19 16:14] LABS: Prostate Specific Antigen 4.07 ng/mL (0.10-4.00)
== END ==
PROVIDERS: PCP Family Medicine; Referring Provider Urology; Visit Provider Urology
DX: N40.1 Benign prostatic hyperplasia with lower urinary tract symptoms (principal); N13.8 Other obstructive and reflux uropathy
CPT/HCPCS: 36415; 84153

== ENCOUNTER → 2024-12-20 13:12 | Outpatient (CLI) | payer MEDICARE, OTHER, SELFPAY ==
[2024-12-20 14:40] LABS: Prostate Specific Antigen 3.73 ng/mL (0.10-4.00)
== END ==
PROVIDERS: Referring Provider Urology; Visit Provider Urology
DX: N40.1 Benign prostatic hyperplasia with lower urinary tract symptoms (principal); Z12.5 Encounter for screening for malignant neoplasm of prostate; N13.8 Other obstructive and reflux uropathy
CPT/HCPCS: 36415; 84153

== ENCOUNTER → 2025-01-30 11:12 | Outpatient (CLI) | payer MEDICARE, OTHER, SELFPAY ==
--- NOTE | 2025-01-30 11:15 | DI.US.S_ITS ---
PROCEDURE: US ABD AORTA ANEURYSM SCREEN INDICATIONS: CALCIFIED AORTA / SMOKING HISTORY TECHNIQUE: Real time scanning was performed of the aorta and iliac arteries, with image documentation. COMPARISON: None. FINDINGS: Aorta: Proximal aortic diameter measures 2.7 cm. Mid-aorta measures 2.1 cm. Distal aortic diameter is 1.7 cm. Iliac arteries: Right common iliac artery measures 1.1 cm. Left common iliac artery measures 1.4 cm. IMPRESSION: No evidence of aortic aneurysm. Mild ectasia of the proximal abdominal aorta, recommend 5 year follow-up ultrasound. Dictated by: Raul Cervantes M.D. on 01/30/2025 at 14:34 Approved by: Raul Cervantes M.D. on 01/30/2025 at 14:35
== END ==
LOC: US 11:13
PROVIDERS: Referring Provider Family Medicine; Visit Provider Family Medicine
DX: I70.0 Atherosclerosis of aorta (principal)
CPT/HCPCS: 76706

== ENCOUNTER 2025-05-24 09:49 | Day surgery (SDC) | payer MEDICARE, OTHER, SELFPAY ==
[2025-05-24] VITALS (13 sets, daily range): BP systolic 127–226; BP diastolic 61–94; PULSE 64–77; RESP 16–25; TEMP 36.6; O2SAT 95–98
--- NOTE | 2025-05-24 | PATH_ITS ---
[facility] Accession Number: [id number] No. of containers..03 Tissue . 01 Material submitted: . PART A: colon - CECAL POLYPS PART B: colon - COLON, ASCENDING POLYPS X3 PART C: colon - COLON, TRANSVERSE POLYP . 01 Diagnosis: Part A: CECAL POLYPS: Tubular adenoma. . Part B: COLON, ASCENDING POLYPS X3: Tubular adenomas. . Part C: COLON, TRANSVERSE POLYP: Tubular adenoma. [facility] 06/06/2025 1340 Local . 01 Electronically signed: . Ian Aden MD, Pathologist NPI- [id number] . 01 Gross description: . . . . Received three formalin-filled containers, each labeled with the patient's name: . A. In a container labeled cecal polyps, the specimen consists of a 0.7 x 0.5 x 0.5 cm fragment of [place] soft tissue, which is entirely submitted cassette A. . B. In a container labeled ascending colon polyps x3, the specimen consists of multiple fragments of [place] soft tissue which range in size from 0.2 x 0.2 x 0.2 cm to 0.8 x 0.5 x 0.3 cm. All fragments are totally submitted in cassette B. . C. In a container labeled transverse colon polyp, the specimen consists of one fragment of [place] soft tissue which measures 0.5 x 0.4 x 0.4 cm. The specimen is totally submitted in cassette C. ([id number]) /[facility] 06/06/2025 1340 Local . 01 Pathologist provided ICD-10: D12.0, D12.2, D12.3 . 01 CPT . 978531, 234135, [id number] Specimen Comment: A courtesy copy of this report has been sent to [phone] Performed at: [address] [facility], [place], [place] [id number] MD Ian Aden MD Phone: [phone]
--- NOTE | 2025-05-24 10:10 | PM.HP.IH.1 ---
History of Present Illness History of Present Illness Date Patient Seen: 05/24/25 Time Patient Seen: 10:10 Chief complaint: Screening Colonoscopy Narrative: Rex is an 85-year-old man is scheduled for a colonoscopy today because he had tubular adenomas removed on his last colonoscopy in [address] Carrion. Also notes that he had an episode of hematochezia last weekend. It resolved after about 2 days. He has not had other episodes hematochezia recently. He does not experience symptomatic hemorrhoids. PFSH Medical History (Updated 05/24/25 @ 10:12 by Anthony Crespo MD) BPH w urinary obs/LUTS Erectile dysfunction Hypernatremia Hypertension Surgical History (Updated 04/19/25 @ 14:59 by Peggy Cheung DO) H/O vasectomy H/O shoulder replacement History of hernia repair Social History marital status: number of children: 6 household members: spouse Tobacco: How many years used: 12 second hand exposure: No alcohol intake: current substance use type: does not use Type(s) of exercise: aerobic frequency: 3-4 times per week Meds Home Medications and Allergies Home Medications ?Medication ?Instructions ?Recorded ?Confirmed ?Type losartan 100 mg tablet 100 mg PO DAILY #90 tabs 04/22/25 04/22/25 Rx metoprolol succinate 25 mg 25 mg PO DAILY #60 tabs 04/22/25 04/22/25 Rx tablet,extended release 24 hr Viagra 100 mg tablet (sildenafil) 100 mg PO DAILY PRN intercourse 04/23/25 Rx #30 tabs sodium,potassium,mag sulfates 17.5 See Rx Instructions PO .COMPLEX 04/25/25 Rx gram-3.13 gram-1.6 gram oral soln #354 mL (Suprep Bowel Prep Kit) Allergies Allergy/AdvReac Type Severity Reaction Status Date / Time No Known Drug Allergies Allergy Verified 05/24/25 10:03 Exam Const General: No acute distress Assessment & Plan Assessment and plan (1) History of colon polyps: Status: Acute (2) Hematochezia: Status: Acute Plan Colonoscopy for history of polyps and hematochezia. Time-Based Coding :: [TOTAL MINUTES] spent with patient and on the chart (including review of chart, obtaining history, exam, reviewing outside data, placing orders, documenting exam and treatment plan, and counseling patient) on [DATE]. PROFEE Journal Box Inspector Document charge(s): No
[2025-05-24] MEDS: LACTATED RINGERS 1,000 ML 42 ML IV (10:19)
--- NOTE | 2025-05-24 11:25 | P.OP.COLON_ITS ---
Operative Date/Time/Diagnoses Date of procedure: 05/24/25 Time of procedure: 11:26 Pre-op diagnosis: History of polyps Post-op diagnosis: same Procedure & Clinicians Study performed: Colonoscopy Same procedure(s) as scheduled: Yes Surgeon: Anthony Crespo Anesthesia Type: MAC +/- Procedure Notes Procedure in detail: Surgeon: Anthony Crespo MD Anesthesia: Suresh Andre MD Procedure: The patient was brought to the endoscopy suite, placed in left lateral decubitus position. The patient was connected to monitoring devices. A time-out was performed. Sedation was administered. Once the patient was adequately sedated, a digital rectal exam was performed and was normal. The scope was then inserted and advanced to the cecum where the appendiceal orifice was identified and photographed. The scope was then slowly withdrawn over greater than 6 minutes. The mucosa was thoroughly inspected. There were two polyps in the cecum, both less than one centimeter and both removed with a cold snare and sent together. One of the polypectomy wounds was bleeding persis tently and so two hemoclips were applied with good effect. There were three polyps in the ascending colon, all less than 1 cm and all removed with a cold snare and sent together. There was one polyp in the transverse colon that was less than a centimeter and removed with a cold snare. There was rather significant sigmoid colon diverticulosis. The scope was retroflexed in the rectum. No other abnormalities were found. The scope was straightened and removed. The patient was awakened and brought to recovery. Scope withdrawal time: 18 minutes Sedation time: 25 minutes EBL: 5 mL Findings: 2 subcentimeter polyps in the cecum, 3 subcentimeter polyps in the ascending colon, 1 subcentimeter transverse polyp and sigmoid colon diverticulosis Estimated Blood Loss: 5 Complications: none Post-procedure Disposition: PACU
--- NOTE | 2025-05-24 11:54 | SUR.PHASEII ---
Pt fully awake and noted to have multifocal PVCs which then went into trigeminy, sustained. Pt takes metoprolol 25mg PO at home but hasn't had a dose since 05/22/25 Verbally d/w Dr Andre anesthesia. VO for PO metoprolol 25mg NOW, monitor for 30 to 60 minutes post administration of medication.
[2025-05-24] MEDS: METOPROLOL ER 25 MG TABLET PO (12:00)
--- NOTE | 2025-05-24 12:23 | EKG_ITS ---
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
[2025-05-24] MEDS: LOSARTAN 50 MG TABLET 100 MG PO (12:55)
--- NOTE | 2025-05-24 13:02 | SUR.PHASEII ---
Anesthesia and Dr. Crespo aware of patients blood pressure. EKG was done and reviewed by anesthesia. patient was given his home blood pressure medication that he has missed for 2 days. patient following up with primary provider on 05/30/2025. patient denies any chest pain, shortness of breath, dizziness or a headache. patient ambulated to and from the bathrrom with out any difficulty and a steady gait. at bedside during discharge instructions and all questions answered.
== END 2025-05-24 13:06 | disposition home or self-care (01) ==
PROVIDERS: PCP Family Medicine; Referring Provider Surgery; Visit Provider Surgery
PROC: 0DJD8ZZ Inspection of Lower Intestinal Tract, Via Natural or Artificial Opening Endoscopic (ICD-10-PCS; CPT 45378; principal; 2025-05-24 11:00)
DX: Z12.11 Encounter for screening for malignant neoplasm of colon (principal); D12.0 Benign neoplasm of cecum; D12.2 Benign neoplasm of ascending colon; D12.3 Benign neoplasm of transverse colon; K57.30 Diverticulosis of large intestine without perforation or abscess without bleeding; I10 Essential (primary) hypertension; Z86.0100 Personal history of colon polyps, unspecified; Z87.891 Personal history of nicotine dependence
CPT/HCPCS: 45385; 93005; 93010; J2704; J3010; J7120

== ENCOUNTER → 2025-06-06 08:52 | Outpatient (CLI) | payer MEDICARE, OTHER, SELFPAY ==
--- NOTE | 2025-06-06 08:54 | DI.ECHO.S_ITS ---
[facility] : : [address] : : [place] : : [id number] : : Phone: [phone] Echocardiogram Report + + :Name: FRAN ROMO Study Date: 06/06/2025 Height: 70 in : :[facility] ReadingLocation: Weight: 185 lb : : Gender: Male BSA: 2.0 m2 : :: 1940 Age: 85 yrs BP: 148/78 mmHg: :Reason For Study: CARDIAC ARRHYTHMIA : :Ordering Physician: KANCHAN, : :ROMULO Performed By: Kaushik Cannon : :Referring: ROMULO HEMPHILL : + + Interpretation Summary The left ventricle is normal in size. The left ventricular ejection fraction is normal. The ejection fraction is estimated to be 55-60%. The right ventricle is at the upper limits of normal in size. The right ventricular systolic function is normal. The left atrium is severely dilated. There is mild mitral regurgitation. There is mild to moderate aortic regurgitation. There is mild tricuspid regurgitation. Right ventricular systolic pressure is estimated to be 37 mmHg plus the clinically estimated CVP which cannot be estimated on this exam. Moderate atherosclerotic plaque(s) in the aortic arch. Procedure: A two-dimensional transthoracic echocardiogram with color flow and Doppler was performed. The study quality was technically good. There is no prior echocardiogram noted for this patient. The patient had occasional PVCs during the exam. The patient was in sinus bradycardia with heart rates between 53-60 bpm during the exam. Left Ventricle: The left ventricle is normal in size. There is normal left ventricular wall thickness. There is no ventricular septal defect visualized. The ejection fraction is estimated to be 55-60%. The left ventricular ejection fraction is normal. There are no focal wall motion abnormalities. Diastolic parameters suggest a relaxation abnormality of the left ventricle, consistent with probable normal filling pressures. Right Ventricle: The right ventricle is at the upper limits of normal in size. The right ventricular systolic function is normal. Atria: The left atrium is severely dilated. The right atrium is mildly dilated. There is no Doppler evidence for an interatrial shunt. Mitral Valve: The mitral valve leaflets appear mildly thickened. The mitral valve leaflets are mildly calcified. There is mild mitral annular calcification. There is mild mitral regurgitation. Aortic Valve: The aortic valve is trileaflet. The aortic valve is mildly calcified. There is no aortic valve stenosis. There is mild to moderate aortic regurgitation. Tricuspid Valve: The tricuspid valve is normal. There is mild tricuspid regurgitation. Right ventricular systolic pressure is estimated to be 37 mmHg plus the clinically estimated CVP which cannot be estimated on this exam. Pulmonic Valve: The pulmonic valve is not well visualized. There is trace pulmonic regurgitation. Great Vessels: The aortic root is mildly dilated. The ascending aorta is mildly enlarged. The aortic arch is at the upper limits of normal in size. Moderate atherosclerotic plaque(s) in the aortic arch. The pulmonary is not well visualized. The inferior vena cava was not well visualized. Pericardium/ Pleura There is no pericardial effusion. There is no pleural effusion. MMode/2D Measurements & Calculations LVIDd: 5.7 cm LVOT diam: 2.2 cm LVIDs: 3.5 cm Ao root diam: 4.0 cm FS: 38.6 % asc Aorta Diam: 3.8 cm EPSS: 1.3 cm IVSd: 1.0 cm LVPWd: 0.96 cm LV corrales. diameter/BSA (cm/m^2): 2.8 LV sys. diameter/BSA (cm/m^2): 1.7 LA A2 area: 30.6 cm2 RA long axis: 6.5 cm LA A4 area: 28.9 cm2 RA area: 23.5 cm2 LA length (vol): 6.8 cm RA vol: 73.0 ml LA vol: 110.5 ml RA : 36.2 ml/m2 LA vol index: 54.7 ml/m2 RVD1 (basal): 4.1 cm RVD2 (mid): 3.1 cm TAPSE: 3.4 cm Doppler Measurements & Calculations Ao V2 max: 136.0 cm/sec LVOT Max Dayo: 76.2 cm/sec Ao V2 mean: 91.5 cm/sec LV V1 max P.3 mmHg Ao max P.4 mmHg LV V1 VTI: 19.3 cm Ao mean P.8 mmHg MARIANELA(I,D): 2.6 cm2 Ao V2 VTI: 29.6 cm MARIANELA(V,D): 2.2 cm2 sev ratio: 0.65 MARIANELA indexed to BSA (cm^2/m^2): 1.3 AI P1/2t: 643.6 msec AI dec slope: 208.6 cm/sec2 MV E max dayo: 49.0 cm/sec TR max dayo: 303.3 cm/sec MV A max dayo: 57.0 cm/sec TR max P.8 mmHg MV E/A: 0.86 PA V2 max: 87.6 cm/sec Med Peak E' Dayo: 4.8 cm/sec PA V2 mean: 55.6 cm/sec E/E' med: 10.3 PA mean P.4 mmHg Lat Peak E' Dayo: 7.1 cm/sec PA pr(Accel): 58.4 mmHg E/E' lat: 6.9 E/e' average: 8.6 MV dec time: 0.44 sec SV(LVOT): 76.3 ml Reading Physician:01:18 PM
== END ==
LOC: ECHO 08:53
PROVIDERS: PCP Family Medicine; Referring Provider Family Medicine; Visit Provider Family Medicine
DX: I08.3 Combined rheumatic disorders of mitral, aortic and tricuspid valves (principal); I77.810 Thoracic aortic ectasia; I77.89 Other specified disorders of arteries and arterioles; I70.0 Atherosclerosis of aorta; I49.9 Cardiac arrhythmia, unspecified; I44.0 Atrioventricular block, first degree; I10 Essential (primary) hypertension
CPT/HCPCS: 93242; 93306

== ENCOUNTER → 2025-06-06 10:08 | Outpatient (CLI) | payer MEDICARE, OTHER, SELFPAY | LOC: CAR 10:09 | PROVIDERS: PCP Family Medicine; Referring Provider Family Medicine; Visit Provider Family Medicine | DX: I49.9 Cardiac arrhythmia, unspecified (principal); I44.0 Atrioventricular block, first degree; I10 Essential (primary) hypertension | CPT/HCPCS: 93242 ==

== ENCOUNTER → 2025-06-17 14:02 | Outpatient (CLI) | payer MEDICARE, OTHER, SELFPAY ==
[2025-06-17 14:38] LABS: Add Manual Diff / Slide Review NO; Hematocrit 37.0 % (41-53); Hemoglobin 12.7 g/dL (13.5-17.5); Lymphocytes Absolute Auto 1000 /uL (1100-4500); Mean Corpuscular HGB Conc 34.5 % (30-36); Mean Corpuscular Hemoglobin 31.8 PG (26-34); Mean Corpuscular Volume 92.1 fL (80-100); Platelet Count 267 X10^3/uL (150-400)
[2025-06-17 15:02] LABS: Alanine Aminotransferase 17 IU/L (<50); Albumin 3.8 g/dL (3.5-5.0); Albumin Globulin Ratio 1.6 (1.0-2.8); Alkaline Phosphatase 71 U/L (38-126); Blood Urea Nitrogen 17 mg/dL (9-20); Calcium 8.7 mg/dL (8.4-10.2); Carbon Dioxide 28 mmol/L (22-32); Chloride 103 mmol/L (98-107); Cholesterol 97 mg/dL (140-199); Estimated Glomerular Filt Rate > 60 mL/min (>60); Globulin 2.4 g/dL (1.7-4.1); Glucose 125 mg/dL (70-99); HDL Cholesterol 28 mg/dL (40-60); HEMOLYSIS < 15 (0-50); Potassium 4.3 mmol/L (3.4-5.1); Sodium 138 mmol/L (137-145); Total Protein 6.2 g/dL (6.3-8.2); Triglycerides 159 mg/dL (35-150)
[2025-06-17 15:28] LABS: TSH w/ Reflex to FT4 1.46 uIU/mL (0.47-4.68)
== END ==
PROVIDERS: PCP Family Medicine; Referring Provider Urology; Visit Provider Urology
DX: N13.8 Other obstructive and reflux uropathy (principal); I10 Essential (primary) hypertension; N40.1 Benign prostatic hyperplasia with lower urinary tract symptoms; Z12.5 Encounter for screening for malignant neoplasm of prostate; E87.0 Hyperosmolality and hypernatremia; I44.0 Atrioventricular block, first degree; N52.9 Male erectile dysfunction, unspecified; Z90.49 Acquired absence of other specified parts of digestive tract; Z79.899 Other long term (current) drug therapy
CPT/HCPCS: 36415; 80053; 80061; 84153; 84154; 84443; 85025

== ENCOUNTER → 2025-06-18 13:26 | Outpatient (CLI) | payer MEDICARE, OTHER, SELFPAY ==
[2025-06-18 14:00] LABS: Hemoglobin A1C% w Est Avg Glu 5.5 % (4.0-6.0)
== END ==
PROVIDERS: PCP Family Medicine; Visit Provider Family Medicine
DX: I10 Essential (primary) hypertension (principal)
CPT/HCPCS: 83036

== ENCOUNTER → 2025-07-16 11:24 | Outpatient (CLI) | payer MEDICARE, OTHER, SELFPAY ==
[2025-07-16 12:55] LABS: INR 1.0 (0.9-1.3); Prothrombin Time 11.6 SECONDS (9.4-12.5)
[2025-07-16 12:57] LABS: Magnesium 2.3 mg/dL (1.6-2.3)
== END ==
PROVIDERS: PCP Family Medicine; Referring Provider Urology; Visit Provider Urology
DX: I44.0 Atrioventricular block, first degree (principal); I48.0 Paroxysmal atrial fibrillation; I49.3 Ventricular premature depolarization; E61.2 Magnesium deficiency
CPT/HCPCS: 36415; 83735; 85610